=== PATIENT | female | born 1975 | race Caucasian/White ===

== ENCOUNTER 2016-06-03 06:04 | Day surgery (SDC) | payer OTHER ==
[2016-06-02 11:02] VITALS: BMI 27.5
[2016-06-03] VITALS (17 sets, daily range): BP systolic 103–131; BP diastolic 61–82; PULSE 76–90; RESP 18–26; Ht 160 cm; Wt 75.3 kg
[~2016-06-03] VITALS: Ht 160 cm; Wt 75.3 kg
[2016-06-03] MEDS ORDERED: SEVOFLURANE 15 MIN ONE (07:00)
[2016-06-03] MEDS ORDERED: BUPIVACAINE 0.25%/EPI (SDV) 30 ML INJ ONE (07:03)
[2016-06-03] MEDS ORDERED: CEFAZOLIN 1 GM INJ ONE (07:24)
[2016-06-03] MEDS ORDERED: PROPOFOL 20 ML ONE (07:24)
[2016-06-03] MEDS ORDERED: ROCURONIUM 50 MG INJ ONE (07:24)
[2016-06-03] MEDS ORDERED: MIDAZOLAM 1 MG/ML 2 ML INJ ONE (07:24)
[2016-06-03] MEDS ORDERED: FENTAnyl 50 MCG/ML VIAL ONE (07:24)
[2016-06-03] MEDS ORDERED: ROPIVACAINE 0.2% 20 ML VIAL ONE (07:26)
--- NOTE | 2016-06-03 07:38 | HPN ---
Date/Time of Note Date/Time of Note DATE: 06/03/16 TIME: 07:37 Interval H&P Admission Note Pt. seen H&P reviewed: No system changes ALPHONSO BLEDSOE MD Jun 03, 2016 07:38
[2016-06-03] MEDS ORDERED: NEOSTIGMINE 3 MG/3 ML SYRINGE ONE (08:03)
[2016-06-03] MEDS ORDERED: ONDANSETRON 4 MG INJ ONE (08:03)
[2016-06-03] MEDS ORDERED: GLYCOPYRROLATE 0.4 MG INJ ONE (08:03)
[2016-06-03] MEDS ORDERED: METOCLOPRAMIDE 10 MG INJ ONE (08:03)
[2016-06-03] MEDS ORDERED: DEXAMETHASONE 4 MG/ML 1 ML INJ ONE (08:04)
[2016-06-03] MEDS ORDERED: KETOROLAC 30 MG INJ ONE (08:04)
[2016-06-03] MEDS ORDERED: DIPHENHYDRAMINE 50 MG INJ IV PRN (08:30)
[2016-06-03] MEDS ORDERED: HYDROmorphONE (0.2 MG/ML) 10ML SYG IV PRN ×3 (08:30)
[2016-06-03] MEDS ORDERED: METOCLOPRAMIDE 10 MG INJ IV PRN (08:30)
[2016-06-03] MEDS ORDERED: ONDANSETRON 4 MG INJ IV PRN ×2 (08:30→13:00)
[2016-06-03] MEDS ORDERED: MEPERIDINE 25 MG INJ IV PRN (08:30)
[2016-06-03] MEDS ORDERED: morphine (1 MG/ML) 10ML SYRINGE IV PRN ×3 (08:30)
[2016-06-03] MEDS ORDERED: FENTAnyl 50 MCG/ML VIAL IV PRN ×3 (08:30)
--- NOTE | 2016-06-03 09:53 | OPR ---
DATE OF OPERATION: 06/03/2016 PREOPERATIVE DIAGNOSIS: Gallstones without obstruction. OPERATION PERFORMED: Laparoscopic cholecystectomy. POSTOPERATIVE DIAGNOSIS: Gallstones without obstruction. SURGEON: Alphonso Bledsoe MD ANESTHESIA: General. ANESTHESIOLOGIST: Dr. Ramirez. OPERATIVE REPORT: After satisfactory general anesthesia was achieved, the abdomen was prepped and draped in the usual fashion. The abdomen was insufflated with carbon dioxide through an umbilical Veress needle to 15 mmHg pressure. The Veress needle was removed and the umbilical incision extended to 5 mm, through which a 5-mm trocar was placed. A 5-mm, 0-degree lens was placed. Laparoscopy was unremarkable. Under direct visualization, a 10-mm epigastric trocar was placed, as well as two 5-mm right lateral abdominal trocars. The dome of the gallbladder was grasped and retracted superiorly. Eligio's pouch was retracted inferiorly. The hepatoduodenal ligament was carefully dissected. The cystic duct was dissected and triply hemoclipped and divided high at the junction of the gallbladder and the cystic duct. The cystic artery was identified immediately posteriorly and triply hemoclipped and divided. A peritoneal attachment to the gallbladder was divided over a clip. The gallbladder was then dissected from below using electrocautery dissection and placed fully intact into an EndoCatch and removed via the epigastric route. Hemostasis of the liver bed was total and the irrigant returned clear. The abdomen was then desufflated and the trocars were removed. The fascia of the epigastrium was closed with a single suture of 0 Vicryl. The skin punctures were infiltrated with 30 mL of 0.25% Marcaine with epinephrine and closed with tangela. OPERATIVE BLOOD LOSS: Less than 10 mL. Sponge and needle counts were reported as correct x2. The patient tolerated the procedure well and without incident or complication. Dictated By: ALPHONSO BLEDSOE MD AR/NTS Conf#: [id number] DID#: [id number] CC: HARIS COOMBS MD;*EndCC* MTDD
[2016-06-03] MEDS ORDERED: OXYCODONE/ACETAMINOPHEN (5/325) TAB PO PRN ×2 (13:00)
[2016-06-03] MEDS ORDERED: morphine 2 MG INJ IV PRN (13:00)
== END 2016-06-03 11:14 | disposition home or self-care (01) ==
LOC: SDS 06:04 → EDBD 07:30 → SDS 11:14
PROVIDERS: ATTEND Surgery
DX: K80.10 Calculus of gallbladder with chronic cholecystitis without obstruction (principal); I10 Essential (primary) hypertension
CPT/HCPCS: 47562; 84703; J0690; J1100; J1885; J2250; J2405; J2710; J2765; J2795; J3010; Z7512; Z7610